=== PATIENT | female | born 1980 | race Caucasian/White ===

== ENCOUNTER 2016-09-16 18:16 | Emergency (ER) | payer BC, OTHER ==
[~2016-09-16] VITALS: Ht 172.7 cm; Wt 78.3 kg
[2016-09-16 18:32] VITALS: TEMP 36.7; Ht 172.7 cm; Wt 78.3 kg
[2016-09-16] MEDS ORDERED: SODIUM CHLORIDE 0.9% 1000ML 1,000 ML IV STA (19:36)
[2016-09-16] MEDS ORDERED: MoRPHine SULFATE 10 MG/ML CARP/VIAL IV STA (19:36)
[2016-09-16] MEDS ORDERED: ONDANSETRON INJ 2 MG/ML 2 ML VIAL IV STA (19:36)
[2016-09-16] MEDS ORDERED: NTRGSL/4 UT (19:47)
[2016-09-16] MEDS ORDERED: ATOR-26 PO (19:47)
[2016-09-16] MEDS ORDERED: OXYC-57 PO (19:47)
[2016-09-16] MEDS ORDERED: ASPI81TA28 PO (19:47)
[2016-09-16] MEDS ORDERED: BUPR-83 PO (19:47)
[2016-09-16] MEDS ORDERED: METO25TA3 PO (19:47)
[2016-09-16] MEDS ORDERED: CLOP1TAB15 PO (19:47)
[2016-09-16] MEDS ORDERED: MEDR150I INJ (19:47)
[2016-09-16 19:50] LABS: BASO % 0.2 %; BASO ABS # 0.02 K/uL (0-0.2); COMPLETE YES; EOS % 1.3 %; HEMATOCRIT 38.8 % (37-47); IG% 0.2 %; LYMPH % 29.9 %; LYMPH ABS # 3.31 K/uL (1.2-3.4); MEAN CELL VOLUME 100.8 fL (80-100); MEAN CORPUSCULAR HEMOGLOBIN 35.1 pg (25-34); MEAN CORPUSCULAR HGB CONC 34.8 g/dl (32-36); MEAN PLATELET VOLUME 9.6 fL (7.4-10.4); NEUT % 62.4 %; PLATELET COUNT 247 K/uL (130-400); RED BLOOD COUNT 3.85 M/uL (4.2-5.4); WHITE BLOOD COUNT 11.08 K/uL (4.8-10.8)
[2016-09-16 20:02] LABS: ALT/SGPT 20 U/L (12-78); AST/SGOT 13 U/L (15-37); BLOOD UREA NITROGEN 12 mg/dl (7-18); BUN/CREATININE RATIO 14.1 (10-20); CARBON DIOXIDE 24 mmol/L (21-32); CHLORIDE 111 mmol/L (98-107); CREATININE 0.85 mg/dl (0.60-1.20); GLUCOSE 96 mg/dl (70-99); POTASSIUM 4.2 mmol/L (3.5-5.1); SODIUM 141 mmol/L (136-145)
[2016-09-16 20:07] LABS: ALB/GLOB RATIO 1.1 (0.9-2); ALKALINE PHOSPHATASE 91 U/L (45-117)
[2016-09-16] MEDS ORDERED: OPTIRAY 320 IV PRN (20:15)
[2016-09-16 20:36] LABS: URINE APPEARANCE CLOUDY (CLEAR); URINE BILIRUBIN NEG (NEG); URINE COLOR DK YELLOW; URINE EPITHELIAL CELL AUTO >30 /lpf (0-5); URINE NITRITE NEG (NEG); URINE SPECIFIC GRAVITY 1.026 (1.000-1.030); UROBILINOGEN NEG (NEG); ZZUR CULT IF INDIC CLEAN CATCH YES
[2016-09-16 20:38] LABS: MANUAL MICROSCOPIC REQUIRED? NO; REVIEW REQ? YES
--- NOTE | 2016-09-16 21:03 | DIAGNOSTIC IMAGING REPORT ---
CT ABD/PELVIS IV CONTRAST ONLY CLINICAL HISTORY: right sided abd pain COMPARISON STUDY: None. TECHNIQUE: Following the IV administration of 117 mL of Optiray-320, CT scan of the abdomen and pelvis was performed from the lung bases to the proximal femurs. Images are reviewed in the axial, sagittal, and coronal planes. IV contrast was administered without complication. CT DOSE: 554.05 mGy.cm FINDINGS: Lower chest: There are bibasal atelectatic changes. There is underlying emphysema/air trapping. Liver: The contrast-enhanced liver is normal in size, contour, and attenuation. There is no intrahepatic biliary ductal dilatation. The hepatic veins and portal veins are patent. Gallbladder: Unremarkable. Spleen: Normal in size and attenuation. Pancreas: Unremarkable. Adrenal glands: Unremarkable. Kidneys: There is symmetric renal cortical enhancement. The kidneys are normal in size without hydronephrosis. Bowel: There are no transition zones indicate bowel obstruction. There is no acute diverticulitis. The appendix is normal. Peritoneum: There is no intraperitoneal free air or abdominal ascites. Vasculature: The abdominal aorta is normal in course and caliber. Adenopathy: None. Pelvic viscera: The bladder, and pelvic viscera are unremarkable. Skeletal structures: No destructive osseous lesions are seen. IMPRESSION: 1. No acute intra-abdominal or pelvic findings 2. No evidence of bowel obstruction. No evidence of free air 3. No evidence of acute appendicitis. No evidence of acute diverticulitis. Electronically signed by: Yvon Morales M.D. 09/16/2016 9:02 PM Dictated Date/Time: 09/16/2016 8:59 PM
--- NOTE | 2016-09-16 21:44 | EMERGENCY ROOM VISIT NOTE ---
History First contact with patient: 19:21 Chief Complaint: ABDOMINAL PAIN Stated Complaint: STOMACH AND SIDE PAIN Nursing Triage Summary: Pt verbalizes last Wednesday she started having right sided abdominal pain, was seen at the [place] ED on Wednesday, negative assessment, was given oxycodone, not helping with the pain. denies N/V/D or urinary symptoms. History of Present Illness The patient is a 36 year old female who presents to the Emergency Room with complaints of right-sided abdominal pain 5 days. The patient reports that she has had a pain in the right side of her abdomen for the past 5 days. The pain has been constant and she describes it as sharp. She rates her discomfort an 8/ 10. The patient was seen a few days ago at [place] emergency Department for her pain and states that she had multiple testing done and they did not find anything. She denies any associated nausea, vomiting, urinary symptoms, vaginal discharge or changes in bowel movements. She was prescribed Percocet which she has been taking without relief. She reportedly has a history of 2 previous myocardial infarctions. She denies any abdominal surgeries. She denies any chest pain or shortness of breath. Review of Systems A complete 10 point review of systems was reviewed with the patient with pertinent positives and negatives as per history of present illness. All else were negative. Past Medical/Surgical History Medical Problems: (1) Heart disease (2) Kidney stone (3) Myocardial infarction (4) Stomach problems (5) Ulcer Surgical Problems: (1) H/O cone biopsy of cervix (2) H/O LEEP (3) S/P LASIK surgery of both eyes (4) Stented coronary artery Family History Cancer Diabetes mellitus Heart disease Hypertension Kidney disease Social History Smoking Status: Current Every Day Smoker Current/Historical Medications Scheduled Aspirin (Aspirin Ec), 81 MG PO DAILY Atorvastatin (Lipitor), 80 MG PO DAILY Bupropion (Wellbutrin), 100 MG PO BID Clopidogrel (Plavix), 75 MG PO DAILY Medroxyprogesterone Acetate (C (Depo-Provera Contraceptiv), INJ [id number] Metoprolol Succ (Toprol Xl) (Toprol-Xl), 25 MG PO DAILY Nitroglycerin (Nitrostat), 0.4 MG UT PRN Scheduled PRN Oxycodone/Acetaminophen 5MG/325MG (Percocet 5MG/325MG), 2 TABLETS PO Q4H PRN for Pain Allergies Coded Allergies: Blueberry (Unverified Adverse Reaction, Unknown, unknwon, 06/30/15) Coconut (Unverified Adverse Reaction, Unknown, unknown, 06/30/15) Physical Exam Vital Signs Date Time Temp Pulse Resp B/P (MAP) Pulse Ox O2 Delivery O2 Flow Rate FiO2 09/16/16 21:54 57 18 104/61 100 09/16/16 20:21 70 18 117/64 99 Room Air 09/16/16 18:32 36.7 60 18 118/68 97 Room Air Physical Exam VITALS: Vitals are noted on the nurse's note and reviewed by myself. Vital signs stable. GENERAL: This is a 36-year-old female, in no acute distress, nondiaphoretic, well-developed well-nourished. SKIN: Capillary reflex less than 2 seconds. HEENT: Normocephalic. PERRLA. EOMI. Nares patent. Mucous membranes moist. Neck is supple without nuchal rigidity. HEART: Regular rate and rhythm without murmurs gallops or rubs. LUNGS: Clear to auscultation bilaterally without wheezes, rales or rhonchi. No retractions or accessory muscle use. ABDOMEN: Positive bowel sounds x 4. Soft, nondistended. There is tenderness to palpation over the right lower quadrant and right mid abdomen. No guarding or rebound tenderness. NEURO: Patient was alert and oriented to person place and time. Medical Decision & Procedures ER Provider Diagnostic Interpretation: CT ABD/PELVIS IV CONTRAST ONLY FINDINGS: Lower chest: There are bibasal atelectatic changes. There is underlying emphysema/air trapping. Liver: The contrast-enhanced liver is normal in size, contour, and attenuation. There is no intrahepatic biliary ductal dilatation. The hepatic veins and portal veins are patent. Gallbladder: Unremarkable. Spleen: Normal in size and attenuation. Pancreas: Unremarkable. Adrenal glands: Unremarkable. Kidneys: There is symmetric renal cortical enhancement. The kidneys are normal in size without hydronephrosis. Bowel: There are no transition zones indicate bowel obstruction. There is no acute diverticulitis. The appendix is normal. Peritoneum: There is no intraperitoneal free air or abdominal ascites. Vasculature: The abdominal aorta is normal in course and caliber. Adenopathy: None. Pelvic viscera: The bladder, and pelvic viscera are unremarkable. Skeletal structures: No destructive osseous lesions are seen. IMPRESSION: 1. No acute intra-abdominal or pelvic findings 2. No evidence of bowel obstruction. No evidence of free air 3. No evidence of acute appendicitis. No evidence of acute diverticulitis. Laboratory Results 09/16/16 19:30 Red Blood Count 3.85, Mean Corpuscular Volume 100.8, Mean Corpuscular Hemoglobin 35.1, Mean Corpuscular Hemoglobin Concent 34.8, Mean Platelet Volume 9.6, Neutrophils (%) (Auto) 62.4, Lymphocytes (%) (Auto) 29.9, Monocytes (%) ( Auto) 6.0, Eosinophils (%) (Auto) 1.3, Basophils (%) (Auto) 0.2, Neutrophils # ( Auto) 6.92, Lymphocytes # (Auto) 3.31, Monocytes # (Auto) 0.67, Eosinophils # ( Auto) 0.14, Basophils # (Auto) 0.02 09/16/16 19:30 Test 09/16/16 19:30 09/16/16 20:28 White Blood Count 11.08 K/uL (4.8-10.8) Red Blood Count 3.85 M/uL (4.2-5.4) Hemoglobin 13.5 g/dL (12.0-16.0) Hematocrit 38.8 % (37-47) Mean Corpuscular Volume 100.8 fL (80-100) Mean Corpuscular Hemoglobin 35.1 pg (25-34) Mean Corpuscular Hemoglobin Concent 34.8 g/dl (32-36) Platelet Count 247 K/uL (130-400) Mean Platelet Volume 9.6 fL (7.4-10.4) Neutrophils (%) (Auto) 62.4 % Lymphocytes (%) (Auto) 29.9 % Monocytes (%) (Auto) 6.0 % Eosinophils (%) (Auto) 1.3 % Basophils (%) (Auto) 0.2 % Neutrophils # (Auto) 6.92 K/uL (1.4-6.5) Lymphocytes # (Auto) 3.31 K/uL (1.2-3.4) Monocytes # (Auto) 0.67 K/uL (0.11-0.59) Eosinophils # (Auto) 0.14 K/uL (0-0.5) Basophils # (Auto) 0.02 K/uL (0-0.2) RDW Standard Deviation 53.1 fL (36.4-46.3) RDW Coefficient of Variation 14.4 % (11.5-14.5) Immature Granulocyte % (Auto) 0.2 % Immature Granulocyte # (Auto) 0.02 K/uL (0.00-0.02) Anion Gap 6.0 mmol/L (3-11) Est Creatinine Clear Calc Drug Dose 98.7 ml/min Estimated GFR () 100.7 Estimated GFR (Non- 86.9 BUN/Creatinine Ratio 14.1 (10-20) Calcium Level 8.0 mg/dl (8.5-10.1) Total Bilirubin 0.2 mg/dl (0.2-1) Aspartate Amino Transf (AST/SGOT) 13 U/L (15-37) Alanine Aminotransferase (ALT/SGPT) 20 U/L (12-78) Alkaline Phosphatase 91 U/L (45-117) Troponin I < 0.015 ng/ml (0-0.045) Total Protein 6.9 gm/dl (6.4-8.2) Albumin 3.6 gm/dl (3.4-5.0) Globulin 3.3 gm/dl (2.5-4.0) Albumin/Globulin Ratio 1.1 (0.9-2) Lipase 104 U/L (73-393) Urine Color DK YELLOW Urine Appearance CLOUDY (CLEAR) Urine pH 7.0 (4.5-7.5) Urine Specific [place] 1.026 (1.000-1.030) Urine Protein NEG (NEG) Urine Glucose (UA) NEG (NEG) Urine Ketones NEG (NEG) Urine Occult Blood NEG (NEG) Urine Nitrite NEG (NEG) Urine Bilirubin NEG (NEG) Urine Urobilinogen NEG (NEG) Urine Leukocyte Esterase NEG (NEG) Urine WBC (Auto) 10-30 /hpf (0-5) Urine RBC (Auto) 0-4 /hpf (0-4) Urine Hyaline Casts (Auto) 1-5 /lpf (0-5) Urine Epithelial Cells (Auto) >30 /lpf (0-5) Urine Bacteria (Auto) 1+ (NEG) Urine Renal Epithelial Cells /lpf (0-5) Urine Test NEG (NEG) Medications Administered Medications (Trade) Dose Ordered Sig/Rayray Route Start Time Stop Time Status Last Admin Dose Admin Sodium Chloride 1,000 ml @ 999 mls/hr Q1H1M STAT IV 09/16/16 19:36 09/16/16 20:36 DC 09/16/16 20:19 999 MLS/HR Ondansetron HCl (Zofran Inj) 4 mg NOW STAT IV 09/16/16 19:36 09/16/16 19:38 DC 09/16/16 20:17 4 MG Morphine Sulfate (MoRPHine SULFATE INJ) 8 mg NOW STAT IV 09/16/16 19:36 09/16/16 19:38 DC 09/16/16 20:17 8 MG ECG Rate (beats per minute): 54 Rhythm: sinus bradycardia Findings: no acute ischemic change, no ectopy Change: no significant change ED Course The patient was evaluated as above. Labs were drawn and IV access was obtained. Patient was medicated with 1 L normal saline solution, 4 mg Zofran IV and 8 mg morphine IV. Abdominal CT was performed and read by radiology as above. Patient was reevaluated and findings were discussed. Discharge instructions were reviewed with the patient. The patient verbalized understanding of my assessment and treatment plan and was discharged home in good condition. Medical Decision Differential diagnosis includes cholecystitis, pancreatitis, gastritis, appendicitis, ovarian cyst, ovarian torsion, gastroenteritis, among others. The patient is a 36-year-old female who presents today complaining of right- sided abdominal pain. She did bring with her son left knee records from [place]. At that time, the patient had a negative workup. Labs revealed a mild leukocytosis of 11,000, which is increased from her CBC performed at [place]. Urinalysis was suggestive of contamination, but will be sent for culture. Urine was negative. EKG was interpreted by myself and shows a normal sinus rhythm without acute ischemia. A CT scan was performed due to the patient's development of leukocytosis. This showed no acute infectious findings within the abdomen. I am unsure the cause of the patient's pain. She was instructed to follow-up with her primary care provider for further evaluation. She should return here for any worsening or new/concerning symptoms. Based on the patient's presentation and work up, I feel the patient is stable for outpatient treatment. The patient was educated to return to the emergency department for any worsening of their current condition or new/concerning symptoms. She will follow up with her PCP. Impression Primary Impression: Right sided abdominal pain Departure Information Dispostion Home / Self-Care Condition GOOD Referrals No Doctor, Assigned (PCP) Patient Instructions [facility] Additional Instructions You have been treated in the Emergency Department your Abdominal Pain. Laboratory results and imaging studies have ruled out any emergent causes for your abdominal pain which would warrant admission or surgery. For pain control, you can use the following [id number] medicines (if >12 yo): - Regular strength (325mg/tab) Tylenol (acetaminophen) 2 tabs every 4-6 hours as needed. Do not exceed 12 tablets in a 24 hour period. Avoid taking more than 4 grams (4000 mg) of Tylenol per day. This includes any other sources of acetaminophen you may take on a regular basis. - Regular strength (200 mg/tab) Advil (ibuprofen) 1-2 tabs every 4-6 hours as needed. Do not exceed a dose of 3200 mg per day. Drink plenty of water and stay well hydrated. As with any trip to the Emergency Department, you should follow-up with your Primary Care Provider from today's visit. Return to the emergency department for any worsening or new/concerning symptoms.
[2016-09-16 21:54] VITALS: BP 104/61; PULSE 57; O2SAT 100
== END 2016-09-16 21:55 | disposition home or self-care (01) ==
LOC: C.EDB 18:18
DX: R10.9 Unspecified abdominal pain (principal); I51.9 Heart disease, unspecified; Z87.442 Personal history of urinary calculi; I25.2 Old myocardial infarction; Z80.9 Family history of malignant neoplasm, unspecified; Z83.3 Family history of diabetes mellitus; Z82.49 Family history of ischemic heart disease and other diseases of the circulatory system; Z84.1 Family history of disorders of kidney and ureter; F17.210 Nicotine dependence, cigarettes, uncomplicated; Z79.82 Long term (current) use of aspirin; Z79.02 Long term (current) use of antithrombotics/antiplatelets; Z79.899 Other long term (current) drug therapy